=== PATIENT | female | born 1950 | race Two or more races ===

== ENCOUNTER 2020-05-15 07:21 | Inpatient (IN) | payer OTHER ==
[~2020-05-15] VITALS: Ht 27.9 cm; Wt 4.0 kg
[2020-05-15] MEDS ORDERED: GLIMEPIRIDE4 MG (07:53)
[2020-05-15] MEDS ORDERED: PRILOSEC OTC20 MG (07:53)
[2020-05-15] MEDS ORDERED: METFORMIN HCL500 MG (07:54)
[2020-05-15] MEDS ORDERED: VASOTEC5 MG (07:54)
[2020-05-15] MEDS ORDERED: HYOSCYAMINE0.125 M1 (07:54)
== END 2020-05-20 13:09 | disposition home or self-care (01) | DRG 330 ==
LOC: ER 07:21 → SEC-K 17:11 → O/R 05-16 10:42 → SURH 05-16 16:42
PROVIDERS: Surgery; ADMIT Internal Medicine; ATTEND Internal Medicine
PROC: 0WQF4ZZ Repair Abdominal Wall, Percutaneous Endoscopic Approach (ICD-10-PCS; 2020-05-16)
PROC: 0DN84ZZ Release Small Intestine, Percutaneous Endoscopic Approach (ICD-10-PCS; 2020-05-16)
PROC: 3E0F7SF Introduction of Other Gas into Respiratory Tract, Via Natural or Artificial Opening (ICD-10-PCS; 2020-05-16)
PROC: BW21ZZZ Computerized Tomography (CT Scan) of Abdomen and Pelvis (ICD-10-PCS; 2020-05-16)
PROC: 0DB84ZZ Excision of Small Intestine, Percutaneous Endoscopic Approach (ICD-10-PCS; principal; 2020-05-16 10:00)
DX: K43.6 Other and unspecified ventral hernia with obstruction, without gangrene (principal); K56.51 Intestinal adhesions [bands], with partial obstruction; E11.9 Type 2 diabetes mellitus without complications; I10 Essential (primary) hypertension; J43.8 Other emphysema; Z79.84 Long term (current) use of oral hypoglycemic drugs; Z20.828 Contact with and (suspected) exposure to other viral communicable diseases

== ENCOUNTER 2020-07-15 09:27 | Emergency (ER) | payer OTHER ==
[~2020-07-15] VITALS: Ht 149.9 cm; Wt 54.4 kg
[~2020-07-15 09:27] MED LIST: GLIMEPIRIDE4 MG; HYOSCYAMINE0.125 M1; METFORMIN HCL500 MG; PRILOSEC OTC20 MG; VASOTEC5 MG
== END 2020-07-15 13:29 | disposition home or self-care (01) ==
LOC: ER 09:27
DX: J44.1 Chronic obstructive pulmonary disease with (acute) exacerbation (principal); Z03.818 Encounter for observation for suspected exposure to other biological agents ruled out; R06.02 Shortness of breath

== ENCOUNTER 2020-11-16 12:04 | Emergency (ER) | payer OTHER ==
[~2020-11-16] VITALS: Ht 154.9 cm; Wt 54.4 kg
== END 2020-11-16 15:18 | disposition home or self-care (01) ==
LOC: ER 12:04
DX: B34.9 Viral infection, unspecified (principal); Z20.822 Contact with and (suspected) exposure to COVID-19; R07.89 Other chest pain

== ENCOUNTER 2021-05-25 10:21 | Emergency (ER) | payer OTHER ==
[~2021-05-25] VITALS: Ht 149.9 cm; Wt 54.4 kg
[2021-05-25] MEDS ORDERED: ENALAPRIL MALEAT5 MG PO (10:41)
[2021-05-25] MEDS ORDERED: SIMVASTATIN20 MG PO (10:42)
== END 2021-05-25 12:46 | disposition home or self-care (01) ==
LOC: ER 10:21
DX: S33.5XXA Sprain of ligaments of lumbar spine, initial encounter (principal); X50.0XXA Overexertion from strenuous movement or load, initial encounter; Y93.89 Activity, other specified; Y92.89 Other specified places as the place of occurrence of the external cause; Y99.8 Other external cause status

== ENCOUNTER 2022-06-20 18:54 | Emergency (ER) | payer OTHER ==
[~2022-06-20] VITALS: Ht 149.9 cm; Wt 54.4 kg
[~2022-06-20 18:54] MED LIST changes: +ENALAPRIL MALEAT5 MG PO; +SIMVASTATIN20 MG PO
[2022-06-20] MEDS ORDERED: ULTRACET PO (21:29)
== END 2022-06-20 21:34 | disposition home or self-care (01) ==
LOC: ER 18:54
DX: S49.91XA Unspecified injury of right shoulder and upper arm, initial encounter (principal); W19.XXXA Unspecified fall, initial encounter; Z91.81 History of falling; Y93.9 Activity, unspecified; Y92.009 Unspecified place in unspecified non-institutional (private) residence as the place of occurrence of the external cause; I10 Essential (primary) hypertension; E11.9 Type 2 diabetes mellitus without complications

== ENCOUNTER 2023-11-07 12:54 | Emergency (ER) | payer OTHER ==
[~2023-11-07] VITALS: Ht 149.9 cm; Wt 54.4 kg
[~2023-11-07 12:54] MED LIST changes: +ULTRACET PO
[2023-11-07] MEDS ORDERED: KETOROLAC TROMETHAMINE 30 MG VIAL IM STA (17:19)
[2023-11-07 17:57] LABS: HEMATOCRIT 39.8 % (36.0-45.00); HEMOGLOBIN 13.6 g/dL (12.0-15.00); MEAN CELL VOLUME 93.7 fL (80.00-100.00); MEAN CORPUSCULAR HGB CONC 34.1 g/dl (32.0-36.0); PLATELET COUNT 254 K/uL (150-450); RED BLOOD COUNT 4.25 M/uL (4.00-6.00); RED CELL DISTRIBUTION WIDTH 13.9 % (11.5-14.5)
== END 2023-11-07 21:07 | disposition home or self-care (01) ==
LOC: ER 12:54
PROVIDERS: General Practice
DX: M54.9 Dorsalgia, unspecified (principal); J44.9 Chronic obstructive pulmonary disease, unspecified; I10 Essential (primary) hypertension; R91.1 Solitary pulmonary nodule; E11.9 Type 2 diabetes mellitus without complications; Z79.84 Long term (current) use of oral hypoglycemic drugs
CPT/HCPCS: 36415; 71046; 96372; 99283; J1885